=== PATIENT | male | born 1970 | race Two or more races ===

== ENCOUNTER 2017-04-18 11:02 | Emergency (ER) | payer MEDICARE, MEDICAID ==
[~2017-04-18] VITALS: Ht 172.7 cm; Wt 133.8 kg
[2017-04-18 13:30] VITALS: BP 125/87
== END 2017-04-18 15:04 | disposition home or self-care (01) ==
LOC: ER 11:02
DX: R60.0 Localized edema (principal); M79.89 Other specified soft tissue disorders; I10 Essential (primary) hypertension; E78.5 Hyperlipidemia, unspecified; E07.9 Disorder of thyroid, unspecified; E66.9 Obesity, unspecified; Z68.41 Body mass index [BMI] 40.0-44.9, adult
CPT/HCPCS: 93971

== ENCOUNTER 2017-05-22 17:01 | Emergency (ER) | payer MEDICARE, MEDICAID ==
[~2017-05-22] VITALS: Ht 172.7 cm; Wt 126.1 kg
[2017-05-22 17:15] VITALS: BP 120/81
[2017-05-22 17:36] LABS: Basophils # (auto) 0.1 uL; Basophils % (auto) 0.9 % (0.0-2.0); CONDITION Y; Eosinophils # (auto) 0.1 uL; Eosinophils % (auto) 1.2 % (0.0-7.0); Hematocrit 49.2 % (41.0-53.0); Hemoglobin 16.2 g/dL (13.5-17.5); Lymphocytes # (auto) 2.4 uL; Lymphocytes % (auto) 22.6 % (10.0-50.0); Mean Corpuscular Hemoglobin 29.4 pg (28.0-32.0); Mean Corpuscular Volume 88.9 fL (80.0-100.0); Mean Platelet Volume 8.4 fL (7.4-10.4); Monocytes # (auto) 0.6 uL; Monocytes % (auto) 5.6 % (0.0-12.0); Neutrophils # (auto) 7.4 uL; Neutrophils % (auto) 69.7 % (37.0-80.0); Platelet Count (auto) 317 10^3/uL (140-450); Red Cell Distribution Width 14.4 % (11.6-16.0); White Blood Cell 10.6 10^3/uL (4.4-10.8)
[2017-05-22 17:52] LABS: Albumin 4.3 g/dL (3.4-5.0); BUN/Creatinine Ratio 6.5; Calcium 8.5 mg/dL (8.5-10.1); Potassium 3.8 mmol/L (3.5-5.1)
[2017-05-22 17:54] LABS: Bilirubin, Total 0.6 mg/dL (0.2-1.0); Total Protein 7.3 g/dL (6.4-8.2)
[2017-05-22 19:08] LABS: Urine Bilirubin Negative (Negative); Urine Blood Negative /uL (Negative); Urine Color Yellow (Yellow); Urine Glucose Normal (Normal); Urine Ketone Negative (Negative); Urine Nitrite Negative (Negative); Urine RBC <1 /hpf (0 - 3); Urine Urobilinogen Normal (Negative); Urine pH 6.5 (5.0-8.0)
== END 2017-05-23 01:30 | disposition left against medical advice (07) ==
LOC: ER 17:04
DX: R51 Headache (principal); R11.0 Nausea; R42 Dizziness and giddiness; Z53.21 Procedure and treatment not carried out due to patient leaving prior to being seen by health care provider
CPT/HCPCS: 36415; 80053; 81001; 85025; 93005

== ENCOUNTER 2017-05-23 08:08 | Emergency (ER) | payer MEDICARE, MEDICAID ==
[~2017-05-23] VITALS: Ht 172.7 cm; Wt 126.1 kg
[2017-05-23 08:15] VITALS: BP 134/85
== END 2017-05-23 09:26 | disposition home or self-care (01) ==
LOC: ER 08:08
DX: K02.9 Dental caries, unspecified (principal); L03.211 Cellulitis of face; I10 Essential (primary) hypertension; E07.89 Other specified disorders of thyroid

== ENCOUNTER 2019-12-07 12:01 | Emergency (ER) | payer MEDICARE, MEDICAID ==
[~2019-12-07] VITALS: Ht 172.7 cm; Wt 136.1 kg
[2019-12-07 12:13] VITALS: BP 135/64
[2019-12-07 12:26] LABS: Urine Bacteria NONE SEEN /hpf (None Seen); Urine Blood Negative /uL (Negative); Urine Specific Gravity 1.004 (1.001-1.035); Urine WBC 1 /hpf (0 - 3)
== END 2019-12-07 14:24 | disposition home or self-care (01) ==
LOC: ER 12:01
DX: S39.012A Strain of muscle, fascia and tendon of lower back, initial encounter (principal); E78.5 Hyperlipidemia, unspecified; I10 Essential (primary) hypertension; E07.9 Disorder of thyroid, unspecified; X58.XXXA Exposure to other specified factors, initial encounter; Y93.89 Activity, other specified; Y92.89 Other specified places as the place of occurrence of the external cause; Y99.8 Other external cause status
CPT/HCPCS: 81001

== ENCOUNTER 2020-03-01 16:22 | Inpatient (IN) | payer OTHER, MEDICAID ==
[~2020-03-01] VITALS: Ht 170.2 cm; Wt 288.0 kg
[2020-03-01 17:56] LABS: Basophils # (auto) 0.1 10 ^3/uL (0-0.2); Basophils % (auto) 1.2 % (0.0-2.0); Eosinophils # (auto) 0.2 10 ^3/uL (0-0.8); Eosinophils % (auto) 1.5 % (0.0-7.0); Hematocrit 49.8 % (41.0-53.0); Hemoglobin 17.1 g/dL (13.5-17.5); Lymphocytes # (auto) 2.3 10 ^3/uL (0.4-5.4); Lymphocytes % (auto) 23.4 % (10.0-50.0); Mean Corpuscular Hemoglobin 30.7 pg (28.0-32.0); Mean Corpuscular Hgb Conc. 34.4 g/dL (32.0-36.0); Mean Corpuscular Volume 89.2 fL (80.0-100.0); Monocytes # (auto) 0.6 10 ^3/uL (0-1.3); Monocytes % (auto) 6.2 % (0.0-12.0); Neutrophils # (auto) 6.7 10 ^3/uL (1.6-8.6); Neutrophils % (auto) 67.7 % (37.0-80.0); Nucleated Red Blood Cells % 0.1 %; Platelet Count (auto) 249 10^3/uL (140-450); Red Blood Cells 5.58 10^6/uL (4.5-5.90); Red Cell Distribution Width 14.1 % (11.8-14.3); White Blood Cell 9.9 10^3/uL (4.4-10.8)
[2020-03-01 18:12] LABS: Albumin 4.4 g/dL (3.4-5.0); BUN/Creatinine Ratio 8.4; Calcium 9.3 mg/dL (8.5-10.1)
[2020-03-01 18:20] LABS: Bilirubin, Total 0.5 mg/dL (0.2-1.0); Total Protein 7.7 g/dL (6.4-8.2)
[2020-03-01 18:26] LABS: INR 2.17 (0.9-1.15); Partial Thromboplastin Time 34.2 sec (23.64-32.05)
[2020-03-01] MEDS ORDERED: MORPHINE SULF INJ 2 MG/ML SYRINGE 1ML IV PRN (19:15)
[2020-03-01] MEDS ORDERED: LABETALOL HCL 5 MG/ML 4ML SYRINGE IV PRN (19:15)
[2020-03-01] MEDS ORDERED: NITROGLYCERIN 0.4 MG SL TAB SL PRN (19:15)
[2020-03-01] MEDS ORDERED: DEXTROSE (50%) 50ML SYRG IV PRN (19:15)
[2020-03-01] MEDS: LACTATED RINGER'S 1,000 ML IV SCH (19:29)
[2020-03-01 19:57] LABS: Cholesterol 129 mg/dL (< 200); HDL Cholesterol 39 mg/dL (40-59); LDL Cholesterol 60 mg/dL (< 100); Triglycerides 166 mg/dL (< 150)
[2020-03-01 20:00] VITALS: BP 135/71
--- NOTE | 2020-03-01 20:00 | NUR ---
Telemetry admit from [facility] admitted to Telemetry unit after SBAR received. Patient oriented to CASSY IBANEZ RN primary RN, unit, room, bed, and unit policies regarding patient care and visiting hours. Patient now on continuous telemetry monitoring, tele box # [id number] and telemetry reading on arrival to unit is [id number]. Patient placed on bedside oxygen, weighed by bedscale and encouraged to call if they need something. All questions and concerns addressed, patient verbalized understanding. Note:
[2020-03-01] MEDS: PANTOPRAZOLE 40 MG/10 ML VIAL INJ IV SCH (20:40)
[2020-03-01] MEDS: MORPHINE SULF INJ 2 MG/ML SYRINGE 1ML IV PRN (20:40)
[2020-03-01] MEDS: ONDANSETRON HCL 4 MG/2 ML VIAL IV PRN (20:40)
[2020-03-01] MEDS ORDERED: LEVO175T31 PO (20:49)
[2020-03-01] MEDS ORDERED: METO-159 PO (20:49)
[2020-03-01] MEDS ORDERED: WARF3TAB20 PO (20:49)
[2020-03-01] MEDS ORDERED: METF-370 PO (20:49)
[2020-03-01] MEDS ORDERED: AMLO5TAB15 PO (20:49)
[2020-03-01] MEDS ORDERED: ESZO3TAB53 PO (20:49)
[2020-03-01] MEDS ORDERED: FLUO60TA7 PO (20:49)
--- NOTE | 2020-03-01 20:49 | NUR ---
INSOMNIA PATIENT STATES HE HAS DIFFICULTY SLEEPING AT NIGHT AND USUALLY TAKE LUNESTA AT HOME, AND REQUESTING A SLEEP AID. [facility] FOR ORDERS. Addendum: 03/01/20 at 2101 by CASSY IBANEZ RN RN DR KOEHLER CALLED BACK INFORMED STATUS OF PATIENT RECEIVED ORDER RESTORIL 15MG PO QHS PRN FOR INSOMNIA
[2020-03-01] MEDS ORDERED: TEMAZEPAM 15 MG CAP PO PRN (21:00)
--- NOTE | 2020-03-01 21:00 | NUR ---
PAIN PATIENT C/O 7/10 ABDOMINAL PAIN REQUESTING PAIN MEDICATION. ADMINISTERED MORPHINE 2MG IV PRESCRIBED PATIENT TOLERATED WELL.
[2020-03-01 22:08] VITALS: BP 135/77
[2020-03-02] MEDS: ACCU-CHEK COMFORT CURVE STRIP VI SCH ×3 (00:44→12:27)
[2020-03-02] MEDS: MORPHINE SULF INJ 2 MG/ML SYRINGE 1ML IV PRN ×4 (01:09→18:26)
--- NOTE | 2020-03-02 01:40 | NUR ---
PAIN PATIENT C/O 7/10 ABDOMINAL PAIN REQUESTING PAIN MEDICATION. ADMINISTERED MORPHINE 2MG IV PRESCRIBED PATIENT TOLERATED WELL.
[2020-03-02] MEDS: LACTATED RINGER'S 1,000 ML IV SCH ×3 (04:55→21:30)
[2020-03-02 05:02] VITALS: BP 109/65
[2020-03-02] MEDS: InsuLIN REG 1unit/0.01ml Soln (100units/ml) SC SCH ×3 (05:33→12:00)
[2020-03-02 06:13] LABS: Basophils # (auto) 0.1 10 ^3/uL (0-0.2); Basophils % (auto) 0.9 % (0.0-2.0); Eosinophils # (auto) 0.2 10 ^3/uL (0-0.8); Eosinophils % (auto) 2.5 % (0.0-7.0); Hematocrit 47.6 % (41.0-53.0); Hemoglobin 16.3 g/dL (13.5-17.5); Lymphocytes # (auto) 2.3 10 ^3/uL (0.4-5.4); Lymphocytes % (auto) 35.5 % (10.0-50.0); Mean Corpuscular Hemoglobin 30.4 pg (28.0-32.0); Mean Corpuscular Hgb Conc. 34.1 g/dL (32.0-36.0); Monocytes # (auto) 0.6 10 ^3/uL (0-1.3); Monocytes % (auto) 9.7 % (0.0-12.0); Neutrophils # (auto) 3.2 10 ^3/uL (1.6-8.6); Neutrophils % (auto) 51.4 % (37.0-80.0); Nucleated Red Blood Cells % 0.2 %; Platelet Count (auto) 194 10^3/uL (140-450); Red Blood Cells 5.35 10^6/uL (4.5-5.90); Red Cell Distribution Width 14.3 % (11.8-14.3); White Blood Cell 6.3 10^3/uL (4.4-10.8)
[2020-03-02 06:27] LABS: Albumin 3.7 g/dL (3.4-5.0); BUN/Creatinine Ratio 7.3; Calcium 8.8 mg/dL (8.5-10.1)
[2020-03-02 06:30] LABS: Bilirubin, Total 0.6 mg/dL (0.2-1.0); Total Protein 6.6 g/dL (6.4-8.2)
[2020-03-02] MEDS: ONDANSETRON HCL 4 MG/2 ML VIAL IV PRN ×2 (08:31→19:54)
[2020-03-02 09:03] VITALS: BP 118/75
[2020-03-02] MEDS: PANTOPRAZOLE 40 MG/10 ML VIAL INJ IV SCH ×2 (09:44→22:00)
[2020-03-02 12:35] VITALS: BP 104/60
[2020-03-02] MEDS ORDERED: LABETALOL HCL 5 MG/ML ML 20ML VIAL IV PRN (13:30)
[2020-03-02 17:06] VITALS: BP 118/68
--- NOTE | 2020-03-02 19:00 | NUR ---
Opening Shift Note Assumed care of patient, awake and alert. No S/S of distress/SOB or pain. Instructed on POC and to call for assist PRN, will continue to monitor for changes Q1hr and PRN.
[2020-03-02 22:00] VITALS: BP 113/69
[2020-03-03] MEDS: LACTATED RINGER'S 1,000 ML IV SCH ×2 (03:15→11:20)
[2020-03-03 05:00] VITALS: BP 128/69
[2020-03-03 06:32] LABS: Hematocrit 46.8 % (41.0-53.0); Hemoglobin 15.9 g/dL (13.5-17.5)
[2020-03-03 06:48] LABS: INR 1.32 (0.9-1.15)
[2020-03-03] MEDS: MORPHINE SULF INJ 2 MG/ML SYRINGE 1ML IV PRN (07:31)
[2020-03-03] MEDS: ONDANSETRON HCL 4 MG/2 ML VIAL IV PRN (07:31)
[2020-03-03 09:00] VITALS: BP 109/58
[2020-03-03] MEDS: PANTOPRAZOLE 40 MG/10 ML VIAL INJ IV SCH (09:22)
--- NOTE | 2020-03-03 09:42 | NUR ---
Received a call from Dr. Ismael Bill stated to advance diet to be full liquid diet and if patient still at the hospital till tomorrow, she will do endoscope and patient needs to be NPO AMN. Noted and carried it out.
[2020-03-03 13:00] VITALS: BP 116/68
[2020-03-03] MEDS ORDERED: PANT40TA2 PO (15:10)
[2020-03-03 15:24] VITALS: BP 116/68
--- NOTE | 2020-03-03 15:44 | NUR ---
Discharge instructions given as ordered. Encourage to follow up with PMD (Follow up with Ashley Perez in 1-2 weeks Address : [address], [address], , [place], [address] #[phone])as instructed. All questions and concerns addressed. Patient verbalized understanding. Medication reconciliation form completed and copy given to patient. H IV removed with catheter intact, pressure dressing applied. Telemetry unit returned to ICU. Patient taken to vehicle via wheelchair with all personal belongings, accompanied by staff and family member. No distress noted at time of departure.
== END 2020-03-03 15:45 | disposition home or self-care (01) | DRG 377 ==
LOC: ER 16:22 → TELE 16:23 → TELE-WESTW 20:00
PROVIDERS: ADMIT Nurse Practitioner Acute Care; ATTEND Nurse Practitioner Acute Care
DX: K29.71 Gastritis, unspecified, with bleeding (principal); K85.00 Idiopathic acute pancreatitis without necrosis or infection; E87.1 Hypo-osmolality and hyponatremia; Z68.41 Body mass index [BMI] 40.0-44.9, adult; E03.9 Hypothyroidism, unspecified; E11.9 Type 2 diabetes mellitus without complications; E66.01 Morbid (severe) obesity due to excess calories; E78.5 Hyperlipidemia, unspecified; F17.210 Nicotine dependence, cigarettes, uncomplicated; I10 Essential (primary) hypertension; K43.9 Ventral hernia without obstruction or gangrene; Z79.01 Long term (current) use of anticoagulants; Z79.84 Long term (current) use of oral hypoglycemic drugs; Z82.49 Family history of ischemic heart disease and other diseases of the circulatory system; Z83.3 Family history of diabetes mellitus; Z86.711 Personal history of pulmonary embolism; Z86.718 Personal history of other venous thrombosis and embolism; Z88.0 Allergy status to penicillin; Z90.49 Acquired absence of other specified parts of digestive tract
CPT/HCPCS: 36415; 74176; 76705; 80053; 80061; 82270; 82962; 83036; 83690; 84443; 85014; 85018; 85025; 85610; 85730; 96365; C9113; G0378; J2405

== ENCOUNTER 2020-09-08 15:41 | Emergency (ER) | payer OTHER, MEDICAID ==
[~2020-09-08] VITALS: Ht 172.7 cm; Wt 136.1 kg
[~2020-09-08 15:41] MED LIST: AMLO5TAB15 PO; ESZO3TAB53 PO; FLUO60TA7 PO; LEVO175T31 PO; METF-370 PO; METO-159 PO; PANT40TA2 PO; WARF3TAB20 PO
[2020-09-08 16:15] LABS: Urine Bacteria FEW /hpf (None Seen); Urine Blood Negative /uL (Negative); Urine Specific Gravity 1.005 (1.001-1.035); Urine WBC 1 /hpf (0 - 3)
[2020-09-08 16:18] LABS: Basophils # (auto) 0.1 10 ^3/uL (0-0.2); Basophils % (auto) 1.3 % (0.0-2.0); Eosinophils # (auto) 0.1 10 ^3/uL (0-0.8); Eosinophils % (auto) 1.1 % (0.0-7.0); Hematocrit 46.8 % (41.0-53.0); Lymphocytes % (auto) 22.6 % (10.0-50.0); Mean Corpuscular Hemoglobin 30.3 pg (28.0-32.0); Mean Corpuscular Hgb Conc. 34.2 g/dL (32.0-36.0); Mean Corpuscular Volume 88.8 fL (80.0-100.0); Monocytes # (auto) 0.6 10 ^3/uL (0-1.3); Monocytes % (auto) 6.7 % (0.0-12.0); Neutrophils % (auto) 68.3 % (37.0-80.0); Nucleated Red Blood Cells % 0.1 %; Platelet Count (auto) 263 10^3/uL (140-450); Red Blood Cells 5.27 10^6/uL (4.5-5.90); Red Cell Distribution Width 14.6 % (11.8-14.3); White Blood Cell 8.8 10^3/uL (4.4-10.8)
[2020-09-08 16:37] LABS: Albumin 4.3 g/dL (3.4-5.0); Anion Gap 7 (5-15); Blood Urea Nitrogen 12 mg/dL (7-18); Calcium 8.8 mg/dL (8.5-10.1); Carbon Dioxide 26 mmol/L (21-32); Chloride 105 mmol/L (98-107); Glucose 104 mg/dL (74-106); Potassium 3.9 mmol/L (3.5-5.1); Sodium 138 mmol/L (136-145)
[2020-09-08 16:42] LABS: Alanine Aminotransferase 54 U/L (16-61); Alkaline Phosphatase 56 U/L (45-117); Aspartate Aminotransferase 26 U/L (15-37); BUN/Creatinine Ratio 10.3; Bilirubin, Total 0.5 mg/dL (0.2-1.0); GFR African American 85 mL/min; GFR Non-African American 70 mL/min
[2020-09-09 00:14] VITALS: BP 140/80
== END 2020-09-09 02:15 | disposition home or self-care (01) ==
LOC: ER 15:41
DX: T14.8XXA Other injury of unspecified body region, initial encounter (principal); R42 Dizziness and giddiness; R51.9 Headache, unspecified; F17.210 Nicotine dependence, cigarettes, uncomplicated; E11.9 Type 2 diabetes mellitus without complications; E78.5 Hyperlipidemia, unspecified; I10 Essential (primary) hypertension; Z90.49 Acquired absence of other specified parts of digestive tract
CPT/HCPCS: 36415; 80053; 81001; 84484; 85025; 93005

== ENCOUNTER 2020-10-15 15:23 | Emergency (ER) | payer OTHER, MEDICAID ==
[~2020-10-15] VITALS: Ht 172.7 cm; Wt 131.1 kg
[2020-10-15] MEDS ORDERED: ASPirin 81 mg TAB PO ONE (15:30)
[2020-10-15 17:22] LABS: Basophils # (auto) 0.1 10 ^3/uL (0-0.2); Basophils % (auto) 0.8 % (0.0-2.0); Eosinophils # (auto) 0.1 10 ^3/uL (0-0.8); Eosinophils % (auto) 1.5 % (0.0-7.0); Hematocrit 45.9 % (41.0-53.0); Hemoglobin 15.9 g/dL (13.5-17.5); Lymphocytes # (auto) 2.5 10 ^3/uL (0.4-5.4); Mean Corpuscular Hemoglobin 30.6 pg (28.0-32.0); Mean Corpuscular Hgb Conc. 34.6 g/dL (32.0-36.0); Mean Corpuscular Volume 88.5 fL (80.0-100.0); Monocytes # (auto) 0.7 10 ^3/uL (0-1.3); Monocytes % (auto) 7.7 % (0.0-12.0); Neutrophils # (auto) 5.4 10 ^3/uL (1.6-8.6); Nucleated Red Blood Cells % 0.1 %; Platelet Count (auto) 266 10^3/uL (140-450); Red Blood Cells 5.18 10^6/uL (4.5-5.90); Red Cell Distribution Width 14.4 % (11.8-14.3); White Blood Cell 8.8 10^3/uL (4.4-10.8)
[2020-10-15 17:52] LABS: Albumin 4.1 g/dL (3.4-5.0); Anion Gap 6 (5-15); Blood Urea Nitrogen 11 mg/dL (7-18); Carbon Dioxide 25 mmol/L (21-32); Chloride 104 mmol/L (98-107); Glucose 92 mg/dL (74-106); Potassium 3.5 mmol/L (3.5-5.1); Sodium 135 mmol/L (136-145)
[2020-10-15 17:57] LABS: Alanine Aminotransferase 53 U/L (16-61); Alkaline Phosphatase 58 U/L (45-117); Aspartate Aminotransferase 24 U/L (15-37); BUN/Creatinine Ratio 9.9; Bilirubin, Total 0.6 mg/dL (0.2-1.0); GFR African American 90 mL/min; GFR Non-African American 74 mL/min
[2020-10-15 19:52] VITALS: BP 142/84
== END 2020-10-15 20:03 | disposition home or self-care (01) ==
LOC: ER 15:23
DX: R07.89 Other chest pain (principal); F17.210 Nicotine dependence, cigarettes, uncomplicated; I10 Essential (primary) hypertension; E11.9 Type 2 diabetes mellitus without complications; E78.5 Hyperlipidemia, unspecified; Z90.89 Acquired absence of other organs; Z88.0 Allergy status to penicillin; Z79.899 Other long term (current) drug therapy
CPT/HCPCS: 36415; 71046; 80053; 84484; 85025; 93005

== ENCOUNTER 2021-03-02 17:54 | Emergency (ER) | payer OTHER, MEDICAID ==
[~2021-03-02] VITALS: Ht 172.7 cm; Wt 127.0 kg
[~2021-03-02 17:54] MED LIST changes: +AMLO-489 PO; -AMLO5TAB15 PO; -LEVO175T31 PO; +LEVO175T66 PO
[2021-03-02 19:55] VITALS: BP 150/84
== END 2021-03-02 20:27 | disposition home or self-care (01) ==
LOC: ER 17:54
DX: H66.92 Otitis media, unspecified, left ear (principal)

== ENCOUNTER 2021-03-17 15:03 | Emergency (ER) | payer OTHER, MEDICAID ==
[~2021-03-17] VITALS: Ht 172.7 cm; Wt 131.5 kg
[2021-03-17 16:39] LABS: Basophils # (auto) 0.1 10 ^3/uL (0-0.2); Basophils % (auto) 0.8 % (0.0-2.0); Eosinophils # (auto) 0.2 10 ^3/uL (0-0.8); Eosinophils % (auto) 1.8 % (0.0-7.0); Hematocrit 46.5 % (41.0-53.0); Hemoglobin 15.7 g/dL (13.5-17.5); Lymphocytes # (auto) 2.2 10 ^3/uL (0.4-5.4); Lymphocytes % (auto) 22.4 % (10.0-50.0); Mean Corpuscular Hemoglobin 29.9 pg (28.0-32.0); Mean Corpuscular Hgb Conc. 33.7 g/dL (32.0-36.0); Mean Corpuscular Volume 88.6 fL (80.0-100.0); Monocytes # (auto) 0.7 10 ^3/uL (0-1.3); Monocytes % (auto) 6.6 % (0.0-12.0); Neutrophils # (auto) 6.9 10 ^3/uL (1.6-8.6); Neutrophils % (auto) 68.4 % (37.0-80.0); Nucleated Red Blood Cells % 0.6 %; Platelet Count (auto) 260 10^3/uL (140-450); Red Blood Cells 5.24 10^6/uL (4.5-5.90)
[2021-03-17 16:55] LABS: Albumin 4.2 g/dL (3.4-5.0); BUN/Creatinine Ratio 19.8; INR 2.23 (0.9-1.15); Partial Thromboplastin Time 35.5 sec (23.0-31.2)
[2021-03-17 17:15] LABS: Bilirubin, Total 0.5 mg/dL (0.2-1.0)
[2021-03-17 17:21] VITALS: BP 165/72
== END 2021-03-17 17:22 | disposition home or self-care (01) ==
LOC: ER 15:03
DX: R51.9 Headache, unspecified (principal); M54.2 Cervicalgia; I10 Essential (primary) hypertension; E11.9 Type 2 diabetes mellitus without complications; E78.5 Hyperlipidemia, unspecified; F20.9 Schizophrenia, unspecified; F17.210 Nicotine dependence, cigarettes, uncomplicated; Z88.0 Allergy status to penicillin; Z79.899 Other long term (current) drug therapy; Z79.4 Long term (current) use of insulin; Z86.711 Personal history of pulmonary embolism; Z90.89 Acquired absence of other organs; Z98.890 Other specified postprocedural states
CPT/HCPCS: 36415; 70450; 80053; 85025; 85610; 85730

== ENCOUNTER 2021-05-17 17:35 | Inpatient (IN) | payer OTHER, MEDICAID ==
[~2021-05-17] VITALS: Ht 172.7 cm; Wt 147.0 kg
[2021-05-17] MEDS ORDERED: SODIUM CHLORIDE 0.9% 1,000 ML IVB ONE (20:30)
[2021-05-17] MEDS ORDERED: IOHEXOL 300 MG/ML 100ML BOTTLE IJ ONE (20:42)
[2021-05-17 21:27] LABS: Basophils # (auto) 0.1 10 ^3/uL (0-0.2); Basophils % (auto) 1.1 % (0.0-2.0); Eosinophils # (auto) 0.2 10 ^3/uL (0-0.8); Eosinophils % (auto) 2.6 % (0.0-7.0); Hematocrit 49.9 % (41.0-53.0); Lymphocytes # (auto) 2.3 10 ^3/uL (0.4-5.4); Lymphocytes % (auto) 29.6 % (10.0-50.0); Mean Corpuscular Hemoglobin 30.4 pg (28.0-32.0); Mean Corpuscular Hgb Conc. 34.1 g/dL (32.0-36.0); Mean Corpuscular Volume 89.2 fL (80.0-100.0); Monocytes # (auto) 0.6 10 ^3/uL (0-1.3); Monocytes % (auto) 7.7 % (0.0-12.0); Neutrophils # (auto) 4.7 10 ^3/uL (1.6-8.6); Nucleated Red Blood Cells % 0.1 %; Platelet Count (auto) 273 10^3/uL (140-450); Red Blood Cells 5.59 10^6/uL (4.5-5.90); Red Cell Distribution Width 14.7 % (11.8-14.3); White Blood Cell 7.9 10^3/uL (4.4-10.8)
[2021-05-17 21:45] LABS: Albumin 4.6 g/dL (3.4-5.0); Calcium 9.1 mg/dL (8.5-10.1); Potassium 4.3 mmol/L (3.5-5.1)
[2021-05-17 21:48] LABS: BUN/Creatinine Ratio 14.3; Bilirubin, Total 0.4 mg/dL (0.2-1.0); Total Protein 7.5 g/dL (6.4-8.2)
[2021-05-18] MEDS ORDERED: SODIUM CHLORIDE 0.9% 1,000 ML IV ONE (01:15)
[2021-05-18] MEDS ORDERED: NITROGLYCERIN 0.4 MG SL TAB SL PRN (04:15)
[2021-05-18] MEDS ORDERED: amLODIPine BESYLATE 5 MG TAB PO ONE (04:15)
[2021-05-18] MEDS ORDERED: SODIUM CHLORIDE 0.9% 1,000 ML IV SCH (04:15)
[2021-05-18] MEDS ORDERED: ONDANSETRON HCL 4 MG/2 ML VIAL IV ONE (04:15)
[2021-05-18] MEDS ORDERED: MORPHINE SULF INJ 2 MG/ML SYRINGE 1ML IV PRN ×2 (04:15)
[2021-05-18] MEDS: LEVOTHYROXINE SODIUM 50 MCG TAB PO SCH (07:05)
[2021-05-18] MEDS: SODIUM CHLORIDE 0.9% 1,000 ML IV SCH ×3 (07:30→22:29)
[2021-05-18] MEDS ORDERED: metFORMIN HYDROCHLORIDE 500 MG TAB PO SCH (08:00)
[2021-05-18 08:10] LABS: Basophils # (auto) 0.1 10 ^3/uL (0-0.2); Basophils % (auto) 1.4 % (0.0-2.0); Eosinophils # (auto) 0.1 10 ^3/uL (0-0.8); Eosinophils % (auto) 2.2 % (0.0-7.0); Hematocrit 45.2 % (41.0-53.0); Hemoglobin 15.6 g/dL (13.5-17.5); Lymphocytes # (auto) 1.8 10 ^3/uL (0.4-5.4); Lymphocytes % (auto) 28.2 % (10.0-50.0); Mean Corpuscular Hemoglobin 30.4 pg (28.0-32.0); Mean Corpuscular Hgb Conc. 34.5 g/dL (32.0-36.0); Mean Corpuscular Volume 88.2 fL (80.0-100.0); Monocytes # (auto) 0.5 10 ^3/uL (0-1.3); Monocytes % (auto) 8.3 % (0.0-12.0); Neutrophils # (auto) 3.7 10 ^3/uL (1.6-8.6); Neutrophils % (auto) 59.9 % (37.0-80.0); Platelet Count (auto) 218 10^3/uL (140-450); Red Blood Cells 5.12 10^6/uL (4.5-5.90); Red Cell Distribution Width 14.7 % (11.8-14.3); White Blood Cell 6.2 10^3/uL (4.4-10.8)
[2021-05-18 08:19] LABS: INR 2.47 (0.9-1.15)
[2021-05-18 08:30] LABS: Albumin 3.9 g/dL (3.4-5.0); Calcium 8.4 mg/dL (8.5-10.1); Potassium 4.3 mmol/L (3.5-5.1)
[2021-05-18 08:33] LABS: Bilirubin, Total 0.6 mg/dL (0.2-1.0); Total Protein 6.6 g/dL (6.4-8.2)
[2021-05-18] MEDS: PANTOPRAZOLE 40 MG TAB PO SCH ×2 (10:00→22:30)
[2021-05-18] MEDS: NICOTINE 21MG/24 HR TOPICAL PATCH TD SCH (10:00)
[2021-05-18] MEDS ORDERED: METOPROLOL TARTRATE 50 MG TAB PO SCH (10:00)
[2021-05-18] MEDS: FLUoxetine HCL 20 MG CAP PO SCH (13:34)
[2021-05-18] MEDS: SUCRALFATE 1 GM/10 ML ORAL SUSP PO SCH ×2 (17:00→22:30)
[2021-05-18] MEDS ORDERED: WARFARIN SODIUM 2.5 MG TAB PO ONE (17:00)
[2021-05-18 17:38] VITALS: BP 132/77
[2021-05-18] MEDS ORDERED: LURA40TA PO (18:50)
[2021-05-18] MEDS ORDERED: FLUO10TA18 PO (18:50)
[2021-05-18] MEDS ORDERED: AMLO-496 PO (18:50)
[2021-05-18] MEDS ORDERED: BACL10TA PO (18:50)
[2021-05-18] MEDS ORDERED: ICOS1CAP2 PO (18:50)
[2021-05-18] MEDS ORDERED: WARF10TA20 PO (18:50)
[2021-05-18 20:00] VITALS: BP 132/83
[2021-05-18 22:00] VITALS: BP 109/54
[2021-05-18] MEDS ORDERED: ESZOPICLONE 3 MG PO SCH (22:00)
[2021-05-19] MEDS: SODIUM CHLORIDE 0.9% 1,000 ML IV SCH ×3 (03:30→16:50)
[2021-05-19 05:00] VITALS: BP 119/68
[2021-05-19] MEDS: SUCRALFATE 1 GM/10 ML ORAL SUSP PO SCH ×4 (06:55→20:25)
[2021-05-19] MEDS: LEVOTHYROXINE SODIUM 50 MCG TAB PO SCH (06:55)
[2021-05-19 06:57] LABS: Basophils # (auto) 0 10 ^3/uL (0-0.2); Basophils % (auto) 0.9 % (0.0-2.0); Eosinophils # (auto) 0.2 10 ^3/uL (0-0.8); Eosinophils % (auto) 3.7 % (0.0-7.0); Hematocrit 42.9 % (41.0-53.0); Hemoglobin 15.1 g/dL (13.5-17.5); Lymphocytes # (auto) 1.3 10 ^3/uL (0.4-5.4); Lymphocytes % (auto) 28.3 % (10.0-50.0); Mean Corpuscular Hemoglobin 31.2 pg (28.0-32.0); Mean Corpuscular Hgb Conc. 35.3 g/dL (32.0-36.0); Mean Corpuscular Volume 88.6 fL (80.0-100.0); Monocytes # (auto) 0.4 10 ^3/uL (0-1.3); Monocytes % (auto) 8.8 % (0.0-12.0); Neutrophils # (auto) 2.7 10 ^3/uL (1.6-8.6); Neutrophils % (auto) 58.3 % (37.0-80.0); Nucleated Red Blood Cells % 0.1 %; Platelet Count (auto) 174 10^3/uL (140-450); Red Blood Cells 4.84 10^6/uL (4.5-5.90); Red Cell Distribution Width 14.5 % (11.8-14.3); White Blood Cell 4.6 10^3/uL (4.4-10.8)
[2021-05-19 07:15] LABS: INR 1.57 (0.9-1.15)
[2021-05-19 07:24] LABS: BUN/Creatinine Ratio 9.1; Calcium 8.1 mg/dL (8.5-10.1); Potassium 4.1 mmol/L (3.5-5.1)
[2021-05-19 09:00] VITALS: BP 142/77
[2021-05-19] MEDS: FLUoxetine HCL 20 MG CAP PO SCH (09:21)
[2021-05-19] MEDS: NICOTINE 21MG/24 HR TOPICAL PATCH TD SCH ×2 (09:21→09:33)
[2021-05-19] MEDS: PANTOPRAZOLE 40 MG TAB PO SCH ×2 (09:21→20:25)
[2021-05-19 13:00] VITALS: BP 131/69
[2021-05-19 17:00] VITALS: BP 143/89
[2021-05-19] MEDS ORDERED: WARFARIN SODIUM 10 MG TAB PO ONE (17:00)
[2021-05-19] MEDS ORDERED: HYDR12.55 PO (22:29)
[2021-05-19] MEDS ORDERED: LOSA50TA7 PO (22:29)
[2021-05-19] MEDS ORDERED: FLUO-259 PO (22:29)
[2021-05-19] MEDS ORDERED: SUCR1SUS10 PO (22:30)
[2021-05-19 22:31] VITALS: BP 136/70
== END 2021-05-19 23:14 | disposition home or self-care (01) | DRG 393 ==
LOC: ER 17:35 → OVERFLOW 05-18 04:35 → TELE-WESTW 05-18 18:13 → WEST WING 05-18 19:45
PROVIDERS: ADMIT Internal Medicine; ATTEND Internal Medicine
DX: K43.9 Ventral hernia without obstruction or gangrene (principal); K85.90 Acute pancreatitis without necrosis or infection, unspecified; K55.069 Acute infarction of intestine, part and extent unspecified; Z68.41 Body mass index [BMI] 40.0-44.9, adult; K29.70 Gastritis, unspecified, without bleeding; K40.90 Unilateral inguinal hernia, without obstruction or gangrene, not specified as recurrent; Z20.822 Contact with and (suspected) exposure to COVID-19; E03.9 Hypothyroidism, unspecified; E11.9 Type 2 diabetes mellitus without complications; E66.01 Morbid (severe) obesity due to excess calories; E78.5 Hyperlipidemia, unspecified; F17.210 Nicotine dependence, cigarettes, uncomplicated; F20.9 Schizophrenia, unspecified; F32.9 Major depressive disorder, single episode, unspecified; G89.29 Other chronic pain; I10 Essential (primary) hypertension; K21.9 Gastro-esophageal reflux disease without esophagitis; K76.0 Fatty (change of) liver, not elsewhere classified; Z79.01 Long term (current) use of anticoagulants; Z82.49 Family history of ischemic heart disease and other diseases of the circulatory system; Z83.3 Family history of diabetes mellitus; Z86.711 Personal history of pulmonary embolism; Z86.718 Personal history of other venous thrombosis and embolism; Z88.0 Allergy status to penicillin; Z79.899 Other long term (current) drug therapy
CPT/HCPCS: 36415; 74177; 76705; 80048; 80053; 83605; 83690; 84478; 85025; 85610; 87426; 93005; 96360; 96361; G0378; J2405

== ENCOUNTER 2021-09-21 19:15 | Emergency (ER) | payer OTHER, MEDICAID ==
[~2021-09-21] VITALS: Ht 172.7 cm; Wt 137.6 kg
[~2021-09-21 19:15] MED LIST changes: -AMLO-489 PO; +BACL10TA PO; -ESZO3TAB53 PO; +FLUO-259 PO; +FLUO10TA18 PO; -FLUO60TA7 PO; +HYDR12.55 PO; +ICOS1CAP2 PO; +LOSA50TA7 PO; +LURA40TA PO; -METO-159 PO; +SUCR1SUS10 PO
[2021-09-21 19:28] VITALS: BP 154/90
== END 2021-09-21 20:23 | disposition left against medical advice (07) ==
LOC: ER 19:16
DX: H05.011 Cellulitis of right orbit (principal); E78.5 Hyperlipidemia, unspecified; I10 Essential (primary) hypertension; F20.9 Schizophrenia, unspecified; F17.210 Nicotine dependence, cigarettes, uncomplicated; Z88.0 Allergy status to penicillin; Z79.899 Other long term (current) drug therapy; Z90.89 Acquired absence of other organs; Z98.890 Other specified postprocedural states; Z86.711 Personal history of pulmonary embolism

== ENCOUNTER 2022-04-02 18:04 | Emergency (ER) | payer OTHER, MEDICAID ==
[~2022-04-02] VITALS: Ht 172.7 cm; Wt 136.1 kg
[2022-04-02 19:50] LABS: Basophils # (auto) 0.1 10 ^3/uL (0-0.2); Basophils % (auto) 1.4 % (0.0-2.0); Eosinophils # (auto) 0.2 10 ^3/uL (0-0.8); Eosinophils % (auto) 2.3 % (0.0-7.0); Hemoglobin 15.5 g/dL (13.5-17.5); Lymphocytes # (auto) 2.8 10 ^3/uL (0.4-5.4); Mean Corpuscular Hgb Conc. 34.3 g/dL (32.0-36.0); Mean Corpuscular Volume 87.4 fL (80.0-100.0); Monocytes # (auto) 0.7 10 ^3/uL (0-1.3); Monocytes % (auto) 8.4 % (0.0-12.0); Neutrophils # (auto) 4.4 10 ^3/uL (1.6-8.6); Neutrophils % (auto) 53.9 % (37.0-80.0); Nucleated Red Blood Cells % 0.2 %; Red Blood Cells 5.15 10^6/uL (4.5-5.90); Red Cell Distribution Width 14.9 % (11.8-14.3); White Blood Cell 8.1 10^3/uL (4.4-10.8)
[2022-04-02 20:06] LABS: INR 2.34 (0.9-1.15)
[2022-04-02 20:08] LABS: Albumin 4.4 g/dL (3.4-5.0); Calcium 9.4 mg/dL (8.5-10.1); Potassium 3.7 mmol/L (3.5-5.1)
[2022-04-02 20:12] LABS: BUN/Creatinine Ratio 8.5
[2022-04-02 20:14] LABS: Bilirubin, Total 0.6 mg/dL (0.2-1.0); Total Protein 7.1 g/dL (6.4-8.2)
[2022-04-02] MEDS ORDERED: CLIN-203 PO (23:04)
[2022-04-02 23:30] VITALS: BP 146/81
== END 2022-04-02 23:52 | disposition home or self-care (01) ==
LOC: ER 18:04
DX: L03.115 Cellulitis of right lower limb (principal); E78.5 Hyperlipidemia, unspecified; I10 Essential (primary) hypertension; F17.210 Nicotine dependence, cigarettes, uncomplicated; Z88.0 Allergy status to penicillin
CPT/HCPCS: 36415; 80053; 83880; 85025; 85610; 86141; 93971

== ENCOUNTER 2022-08-08 18:37 | Emergency (ER) | payer OTHER, MEDICAID ==
[~2022-08-08] VITALS: Ht 172.7 cm; Wt 136.3 kg
[~2022-08-08 18:37] MED LIST changes: +CLIN-203 PO
[2022-08-09] MEDS ORDERED: NAP500T PO (02:23)
[2022-08-09 04:45] VITALS: BP 136/76
== END 2022-08-09 05:08 | disposition home or self-care (01) ==
LOC: ER 18:37
DX: M26.602 Left temporomandibular joint disorder, unspecified (principal); F17.210 Nicotine dependence, cigarettes, uncomplicated; E78.5 Hyperlipidemia, unspecified; I10 Essential (primary) hypertension; Z88.0 Allergy status to penicillin
CPT/HCPCS: 70120